=== PATIENT | female | born 1970 | race Caucasian/White ===

== ENCOUNTER 2016-10-11 20:46 | Emergency (ER) | payer SELFPAY ==
[~2016-10-11] VITALS: Ht 185.4 cm; Wt 122.5 kg
[2016-10-11 21:25] LABS: HEMATOCRIT 43.1 % (36.0-46.0); MCH 29.3 PG (29.0-34.0); MCHC 33.9 G/DL (30.0-36.0); MCV 86.5 FL (83-99); PLATELET COUNT 302 K/uL (156-360); RBC DIS.WIDTH-CV 13.2 % (11.8-14.6); RBC DIS.WIDTH-SD 40.9 % (39-53); RED BLOOD COUNT 4.98 M/uL (3.80-5.20)
[2016-10-11 21:35] LABS: CHLORIDE 105 mEq/L (99-109); POTASSIUM 3.7 mEq/L (3.7-5.4); SODIUM 142 mEq/L (136-147)
[2016-10-11 21:38] LABS: GLUCOSE 114 mg/dL (70-99)
[2016-10-11 21:39] LABS: ANION GAP 13 MEQ/L (2-14)
[2016-10-11 21:40] LABS: TOTAL BILIRUBIN 0.6 mg/dL (0.0-1.0)
[2016-10-11 21:41] LABS: ALKALINE PHOSPHATASE 100 IU/L (3-129); GFR ESTIMATE (CALCULATED) > 59 mL/min/
[2016-10-11 21:42] LABS: UREA NITROGEN (BUN) 19 mg/dL (9-23)
[2016-10-11 21:53] LABS: QUANTITATIVE HCG < 4.0 MIU/ML
[2016-10-12 00:54] LABS: ADD MIUA? NO; BILIRUBIN NEGATIVE; BLOOD NEGATIVE; COLOR YELLOW ((YELLOW)); GLUCOSE (STRIP) NEGATIVE; KETONES NEGATIVE; LEUKOCYTES NEGATIVE; NITRITE NEGATIVE; PROTEIN (STRIP) 30; SPECIFIC GRAVITY 1.019 (1.000-1.030); UCUL ADDED? NO; UROBILINOGEN 0.2 MG/DL (0.2-1.0)
[2016-10-12 01:02] LABS: AMPHETAMINE NEGATIVE (500 ng/mL); BARBITURATES NEGATIVE (200 ng/mL); BENZODIAZEPINES NEGATIVE (150 ng/mL); COCAINE NEGATIVE (150 ng/mL); INTERNAL CONTROLS VALID? YES; METHADONE NEGATIVE (200 ng/mL); METHAMPHETAMINE NEGATIVE (500 ng/mL); OPIATES (MORPHINE) NEGATIVE (100 ng/mL); OXYCODONE NEGATIVE (100 ng/mL); PHENCYCLIDINE NEGATIVE (25 ng/mL); PROPOXYPHENE NEGATIVE (300 ng/mL); THC CANNABINOIDS NEGATIVE (50 ng/mL); TRICYCLIC ANTIDEPRESSANTS NEGATIVE (300 ng/mL)
[2016-10-12 01:16] VITALS: BP 186/106
[2016-10-13 10:47] LABS: TREPONEMA ANTIBODY NEGATIVE (NEGATIVE)
[2016-10-13 12:08] LABS: CHLAMYDIA TRACHOMATIS NEGATIVE; NEISSERIA GONORRHOEAE NEGATIVE
== END 2016-10-12 01:21 | disposition home or self-care (01) ==
LOC: EME 20:46
PROVIDERS: Emergency Medicine
DX: T76.21XA Adult sexual abuse, suspected, initial encounter (principal)
CPT/HCPCS: 80053; 81003; 84702; 85027; 86780; 87491; 87591; 99281; 99285; G0480; J0696